=== PATIENT | male | born 1945 | race African-American/Black ===

== ENCOUNTER → 2022-01-30 | Outpatient (CLI) | payer OTHER ==
[~2022-01-30] MED LIST: CEPHALEXIN500 MG PO; NOVOLOG MI100 UNITS/ SQ
== END ==
LOC: DX 09:40
PROVIDERS: ATTEND Internal Medicine
DX: M85.88 Other specified disorders of bone density and structure, other site (principal)
CPT/HCPCS: 77080

== ENCOUNTER → 2022-02-15 | Outpatient (CLI) | payer OTHER | LOC: RAD 10:39 | PROVIDERS: ATTEND Internal Medicine | DX: M16.11 Unilateral primary osteoarthritis, right hip (principal) ==

== ENCOUNTER → 2022-09-27 | Outpatient (CLI) | payer OTHER | LOC: RAD 09:26 | PROVIDERS: ATTEND Internal Medicine | DX: J20.8 Acute bronchitis due to other specified organisms (principal) | CPT/HCPCS: 71046 ==

== ENCOUNTER 2022-11-07 14:37 | Emergency (ER) | payer OTHER ==
[~2022-11-07] VITALS: Ht 175.3 cm; Wt 74.8 kg
[2022-11-07] MEDS ORDERED: TETANUS/DIPHTHERIA TOX ADULT 0.5 ML SYR IM ONE (15:00)
[2022-11-07 15:33] VITALS: O2SAT 100
== END 2022-11-07 16:00 | disposition home or self-care (01) ==
LOC: ER 14:41
DX: S61.411A Laceration without foreign body of right hand, initial encounter (principal); W45.0XXA Nail entering through skin, initial encounter; Y92.89 Other specified places as the place of occurrence of the external cause; I10 Essential (primary) hypertension; E11.9 Type 2 diabetes mellitus without complications; E78.5 Hyperlipidemia, unspecified
CPT/HCPCS: 90471; 90714; 99283